=== PATIENT | female | born 1985 | race Hispanic/Latino ===

== ENCOUNTER 2019-12-16 06:10 | Inpatient (IN) | payer BC ==
[~2019-12-16] VITALS: Ht 160 cm; Wt 72.1 kg
[2019-12-16] MEDS ORDERED: LACTATED RINGERS 1000ML 1,000 ML IV PRN (06:11)
[2019-12-16] MEDS ORDERED: OXYTOCIN 10 USP UNITS/ML 20 UNIT in LACTATED RINGERS 1000ML 1,000 ML IV SCH (06:15)
[2019-12-16 07:09] LABS: APPEARANCE,URINE Cloudy (CLEAR); BILIRUBIN,URINE Negative (NEGATIVE); COLOR,URINE Yellow (YELLOW); GLUCOSE, URINE (UA) Negative (NEGATIVE); KETONES,URINE Negative (NEGATIVE); LEUKOCYTE ESTERASE ,URINE Moderate (NEGATIVE); NITRATE,URINE Negative (NEGATIVE); OCCULT BLOOD,URINE Negative (NEGATIVE); PH,URINE 6.5 (5.0-8.0); PROTEIN,URINE Negative (NEGATIVE); UROBILINOGEN,URINE 0.2 mg/dL (0.2-1.0)
[2019-12-16 07:14] LABS: BACTERIA,URINE Few /HPF (None Seen); RBC,URINE 0-1 /HPF (0-1); SQUAMOUS EPITHELIAL CELL,UR Moderate /HPF (0-2)
[2019-12-16] MEDS ORDERED: OXYTOCIN-LR 20 UNITS/1000 ML 1,000 ML IV SCH (07:15)
[2019-12-16] MEDS ORDERED: BUTORPHANOL TARTRATE 2 MG/ML IVP PRN (07:15)
[2019-12-16] MEDS ORDERED: ROPIVACAINE 0.2% 100ML VIAL 100 ML EP SCH (07:15)
[2019-12-16] MEDS ORDERED: NALOXONE HCL 0.4 MG/1 ML ML IV PRN (07:15)
[2019-12-16] MEDS ORDERED: EPHEDRINE SULFATE 50 MG/ML AMPULE IVP PRN (07:15)
[2019-12-16] MEDS ORDERED: LACTATED RINGERS 500 ML 500 ML IV PRN (07:15)
[2019-12-16 07:45] LABS: MEAN CORPUSCULAR HEMOGLOBIN 23.8 pg (27.0-33.0); MEAN CORPUSCULAR HGB CONC 30.6 g/dL (32.0-36.0); MEAN CORPUSCULAR VOLUME 77.7 fL (79-99); NUCLEATED RED BLOOD CELLS 0.5 % (0.0-0.19); PLATELET COUNT (AUTO) 167 K/uL (130-400); RED BLOOD CELL COUNT(AUTO) 4.12 MIL/uL (4.00-5.50); RED CELL DISTRIBUTION WIDTH 17.5 % (11.0-15.5); WHITE BLOOD COUNT (AUTO) 6.2 K/uL (4.8-10.8)
[2019-12-17 08:15] LABS: HEPATITIS Bs ANTIGEN SCREEN P Negative (Negative)
[2019-12-17] MEDS ORDERED: TRANEXAMIC ACID 1000MG/10ML IV PRN (09:45)
[2019-12-17] MEDS ORDERED: METHYLERGONOVINE MALEATE 0.2 MG/1 ML ML IM PRN (09:45)
[2019-12-17] MEDS ORDERED: LIDOCAINE HCL 1% 20 ML VIAL INJ PRN (09:45)
[2019-12-17] MEDS ORDERED: MISOPROSTOL 200 MCG TABLET VG PRN (09:45)
[2019-12-17] MEDS ORDERED: ACETAMINOPHEN 325 MG TAB PO PRN (10:30)
[2019-12-17] MEDS ORDERED: ACETAMINOPHEN-CODEINE 300/30MG TAB PO PRN (10:30)
[2019-12-17] MEDS ORDERED: DIPH,PERTUSS(ACELL),TET VAC/PF 0.5 ML VIAL IM PRN (10:30)
[2019-12-17] MEDS ORDERED: LANOLIN 30GM OINTMENT TP PRN (10:30)
[2019-12-17] MEDS ORDERED: MEASLES/MUMPS/RUBELLA VACCINE, LIVE 0.5 ML/VIAL SQ PRN (10:30)
[2019-12-17] MEDS ORDERED: WITCH HAZEL 1 PAD TP PRN (10:30)
[2019-12-17] MEDS ORDERED: BENZOCAINE/LANOLIN/ALOE VERA 60 ML AEROSOL TP PRN (10:30)
[2019-12-17] MEDS ORDERED: IBUPROFEN 600 MG TABLET ONE (11:00)
[2019-12-17] MEDS ORDERED: OXYTOCIN-LR 20 UNITS/1000 ML 1,000 ML IV ONE (11:35)
[2019-12-17 12:05] VITALS: BP 131/93
[2019-12-17 16:45] VITALS: BP 153/71
[2019-12-17] MEDS ORDERED: PNV1TABL17 PO (17:09)
[2019-12-17] MEDS: IBUPROFEN 600 MG TABLET PO PRN (17:22)
[2019-12-17 19:38] VITALS: BP 113/51
[2019-12-17] MEDS: DOCUSATE SODIUM 100 MG CAP PO SCH (20:50)
[2019-12-17 23:05] VITALS: BP 136/81
[2019-12-18 03:52] VITALS: BP 136/86
[2019-12-18 05:51] LABS: HEMATOCRIT 28.6 % (36-48); MEAN CORPUSCULAR HEMOGLOBIN 23.5 pg (27.0-33.0); MEAN CORPUSCULAR HGB CONC 29.7 g/dL (32.0-36.0); MEAN CORPUSCULAR VOLUME 79.2 fL (79-99); RED BLOOD CELL COUNT(AUTO) 3.61 MIL/uL (4.00-5.50); RED CELL DISTRIBUTION WIDTH 17.4 % (11.0-15.5); WHITE BLOOD COUNT (AUTO) 6.7 K/uL (4.8-10.8)
[2019-12-18 07:20] VITALS: BP 132/91
[2019-12-18] MEDS: IBUPROFEN 600 MG TABLET PO PRN (07:34)
[2019-12-18] MEDS ORDERED: IBUP-2077 PO (08:36)
[2019-12-18] MEDS ORDERED: DOCU-116 PO (08:37)
[2019-12-18] MEDS: DOCUSATE SODIUM 100 MG CAP PO SCH (08:56)
--- NOTE | 2019-12-18 09:10 | NUR ---
verbal and written discharge instructions given, informed of the follow up appointment, prescription given, all questions answered, informed to call the doctor for future concerns, pt voiced understanding to all things discussed Addendum: 12/18/19 at 1155 by JENA PECK RN Amended: Links added.
--- NOTE | 2019-12-18 11:20 | NUR ---
pt is dismissed in stable condition, brought to private car via wheelchair by jaspreet Chawla pcp Addendum: 12/18/19 at 1351 by JENA PECK RN Amended: Links added.
--- NOTE | 2019-12-18 11:50 | NUR ---
kiara Chawla crna checked dressing of epidural catheter, replaced with new tegaderm. Addendum: 12/18/19 at 1200 by JENA PECK RN Amended: Links added. Addendum: 12/18/19 at 1205 by JENA PECK RN error - wrong pt
== END 2019-12-18 11:20 | disposition home or self-care (01) | DRG 807 ==
LOC: LDH 06:10 → WSH 12-17 12:00
PROVIDERS: ADMIT Obstetrics & Gynecology; ATTEND Obstetrics & Gynecology
PROC: 10907ZC Drainage of Amniotic Fluid, Therapeutic from Products of Conception, Via Natural or Artificial Opening (ICD-10-PCS; principal; 2019-12-17)
PROC: 10E0XZZ Delivery of Products of Conception, External Approach (ICD-10-PCS; 2019-12-17)
PROC: 3E033VJ Introduction of Other Hormone into Peripheral Vein, Percutaneous Approach (ICD-10-PCS; 2019-12-17)
PROC: 3E0P7VZ Introduction of Hormone into Female Reproductive, Via Natural or Artificial Opening (ICD-10-PCS; 2019-12-17)
PROC: 3E0234Z Introduction of Serum, Toxoid and Vaccine into Muscle, Percutaneous Approach (ICD-10-PCS; 2019-12-17)
DX: O80 Encounter for full-term uncomplicated delivery (principal); Z37.0 Single live birth; Z3A.39 39 weeks gestation of pregnancy; Z23 Encounter for immunization
CPT/HCPCS: 36415; 81001; 85027; 86592; 86850; 86900; 86901; 87088; 87340; 90715; G0378; J0595; J2210; J2590

== ENCOUNTER → 2020-10-15 | Outpatient (CLI) | payer BC ==
[~2020-10-15] MED LIST: DOCU-116 PO; IBUP-2077 PO; PNV1TABL17 PO
== END | disposition home or self-care (01) ==
LOC: RAH 07:52
PROVIDERS: ATTEND Internal Medicine
DX: E04.9 Nontoxic goiter, unspecified (principal)
CPT/HCPCS: 76536